=== PATIENT | female | born 1955 | race Caucasian/White ===

== ENCOUNTER 2021-04-20 12:16 | Emergency (ER) | payer MEDICAID ==
[~2021-04-20] VITALS: Ht 165.1 cm; Wt 64.0 kg
[2021-04-20] MEDS ORDERED: ACETAMINOPHEN 325MG TABLET PO NR (14:15)
[2021-04-20 15:11] LABS: BASOPHILS % 0.7 % (0.0-2.0); EOSINOPHILS % 2.9 % (0.0-5.0); HEMATOCRIT. 38.8 % (36.0-48.0); HEMOGLOBIN. 12.7 g/dL (12.0-16.0); LYMPHOCYTES % 32.7 % (20.0-50.0); MEAN CORPUSCULAR HEMOGLOBIN 30.4 pg (28.0-32.0); MEAN CORPUSCULAR VOLUME 92.8 fL (81.0-99.0); MEAN PLATELET VOLUME 8.4 fl (7.4-10.4); MONOCYTES % 6.8 % (2.0-8.0); NEUTROPHILS % 56.9 % (40.0-76.0); PLATELET 242 x1000/uL (130-400); RED BLOOD CELL COUNT 4.18 mill/uL (4.2-5.4); RED CELL DISTRIBUTION WIDTH 15.3 % (11.6-14.6)
[2021-04-20 15:19] LABS: CHLORIDE 112 mEq/L (98-107)
[2021-04-21 03:30] VITALS: BP 137/81
== END 2021-04-21 06:09 | disposition home or self-care (01) ==
LOC: ER 12:16
DX: M25.562 Pain in left knee (principal); M25.561 Pain in right knee; I95.9 Hypotension, unspecified; R41.82 Altered mental status, unspecified; R94.31 Abnormal electrocardiogram [ECG] [EKG]; R51.9 Headache, unspecified; R74.01 Elevation of levels of liver transaminase levels; Z59.02 Unsheltered homelessness
CPT/HCPCS: 36415; 70486; 71045; 73560; 80053; 83880; 84484; 85025; 93005; 99285

== ENCOUNTER 2021-08-28 13:34 | Inpatient (IN) | payer MEDICARE, OTHER ==
[~2021-08-28] VITALS: Ht 162.6 cm; Wt 70.2 kg
[2021-08-28 15:03] LABS: BASOPHILS % 0.6 % (0.0-2.0); EOSINOPHILS % 2.4 % (0.0-5.0); HEMOGLOBIN. 11.6 g/dL (12.0-16.0); LYMPHOCYTES % 25.5 % (20.0-50.0); MEAN CORPUSCULAR HEMOGLOBIN 30.1 pg (28.0-32.0); MEAN PLATELET VOLUME 8.8 fl (7.4-10.4); MONOCYTES % 6.7 % (2.0-8.0); NEUTROPHILS % 64.8 % (40.0-76.0); PLATELET 235 x1000/uL (130-400); RED BLOOD CELL COUNT 3.86 mill/uL (4.2-5.4); RED CELL DISTRIBUTION WIDTH 14.6 % (11.6-14.6)
[2021-08-28 15:09] LABS: CHLORIDE 111 mEq/L (98-107)
[2021-08-28 18:12] LABS: CLARITY URINE CLEAR (CLEAR); COLOR URINE YELLOW (YELLOW); KETONES URINE NEGATIVE (NEGATIVE); LEUKOCYTE ESTERASE URINE NEGATIVE (NEGATIVE); NITRITE URINE NEGATIVE (NEGATIVE); OCCULT BLOOD URINE NEGATIVE (NEGATIVE); PROTEIN URINE NEGATIVE (NEGATIVE); SPECIFIC GRAVITY URINE 1.008 (1.005-1.030)
[2021-08-28] MEDS ORDERED: SODIUM CHLORIDE 0.9% 1,000 ML IV ONE (19:00)
[2021-08-28] MEDS ORDERED: CLONIDINE 0.1MG TABLET PO PRN (21:15)
[2021-08-28] MEDS ORDERED: ZOLPIDEM TARTRATE 5MG TABLET PO PRN (21:15)
[2021-08-28] MEDS ORDERED: DIPHENHYDRAMINE 50MG/ML VIAL IV PRN (21:15)
[2021-08-28] MEDS ORDERED: GUAIFENESIN 200MG/10ML SUGAR FREE UDC PO PRN (21:15)
[2021-08-28] MEDS ORDERED: ONDANSETRON HCL 4MG/2ML INJ IV PRN (21:15)
[2021-08-28] MEDS ORDERED: MAGNESIUM/ALUMINUM HYDROXIDE/SIMETHICONE 30ML UDC PO PRN (21:15)
[2021-08-28] MEDS ORDERED: ACETAMINOPHEN 325MG TABLET PO PRN (21:15)
[2021-08-28] MEDS: SODIUM CHLORIDE 0.9% INJ 3ML FLUSH IVF SCH (22:02)
[2021-08-29 01:36] VITALS: BP 169/82
[2021-08-29 04:00] VITALS: BP 98/64
[2021-08-29] MEDS: SODIUM CHLORIDE 0.9% INJ 3ML FLUSH IVF SCH ×3 (06:48→22:22)
[2021-08-29 08:00] VITALS: BP 94/60
[2021-08-29 09:23] LABS: T4 FREE 0.77 ng/dL (0.76-1.46)
[2021-08-29] MEDS: ENOXAPARIN 40MG/0.4ML SYR SUBCUT SCH (09:49)
[2021-08-29 12:00] VITALS: BP 98/66
[2021-08-29] MEDS: ASPIRIN 81MG TABLET PO SCH (12:06)
[2021-08-29 16:00] VITALS: BP 99/59
[2021-08-29 17:44] LABS: CREATINE KINASE MB FRACTION 6.1 ng/mL (0.5-3.6)
[2021-08-29] MEDS: ACETAMINOPHEN 325MG TABLET PO PRN (19:55)
[2021-08-29 20:00] VITALS: BP 115/79
[2021-08-30] VITALS: BP 103/62
[2021-08-30 00:09] LABS: CREATINE KINASE MB FRACTION 9.1 ng/mL (0.5-3.6)
[2021-08-30 03:48] VITALS: BP 97/57
[2021-08-30] MEDS: SODIUM CHLORIDE 0.9% INJ 3ML FLUSH IVF SCH ×3 (05:17→21:34)
[2021-08-30 08:00] VITALS: BP 136/68
[2021-08-30] MEDS: ENOXAPARIN 40MG/0.4ML SYR SUBCUT SCH (08:25)
[2021-08-30] MEDS: ASPIRIN 81MG TABLET PO SCH (08:25)
[2021-08-30] MEDS: ACETAMINOPHEN 325MG TABLET PO PRN ×2 (08:26→21:34)
[2021-08-30 12:00] VITALS: BP 100/63
[2021-08-30] MEDS: CLOPIDOGREL 75MG TABLET PO SCH (12:31)
[2021-08-30 16:00] VITALS: BP 122/59
[2021-08-30 20:00] VITALS: BP 113/66
[2021-08-31] VITALS (7 sets, daily range): BP systolic 91–124; BP diastolic 54–70
[2021-08-31] MEDS: SODIUM CHLORIDE 0.9% INJ 3ML FLUSH IVF SCH ×3 (05:36→21:15)
[2021-08-31] MEDS: ENOXAPARIN 40MG/0.4ML SYR SUBCUT SCH (08:34)
[2021-08-31] MEDS ORDERED: NICARDIPINE 100MCG/ML 10ML VIAL (CATH LAB) IV ONE (08:36)
[2021-08-31] MEDS ORDERED: NITROGLYCERIN 50MCG/ML 10ML VIAL (CATH LAB) IV ONE (08:36)
[2021-08-31] MEDS ORDERED: LIDOCAINE HCL/PF 1% 10 MG/ML 5ML VIAL ONE ×2 (09:36→13:34)
[2021-08-31] MEDS: CLOPIDOGREL 75MG TABLET PO SCH (09:59)
[2021-08-31] MEDS: ASPIRIN 81MG TABLET PO SCH (09:59)
[2021-08-31 11:11] LABS: INR 1.1; PROTHROMBIN TIME 11.4 sec (9.6-11.0)
[2021-08-31] MEDS ORDERED: DIPHENHYDRAMINE 50MG/ML VIAL ONE (13:34)
[2021-08-31] MEDS ORDERED: VERAPAMIL HCL 2.5 MG/1 ML 2ML VIAL IV ONE (13:34)
[2021-08-31] MEDS ORDERED: IODIXANOL 320MG/ML 100 ML BOTTLE IV ONE (13:35)
[2021-08-31] MEDS ORDERED: HEPARIN 1000 UNITS/ML 10ML ONE (13:35)
[2021-08-31] MEDS ORDERED: MIDAZOLAM HCL 2 MG/2 ML VIAL ONE (13:35)
[2021-08-31] MEDS ORDERED: FENTANYL CITRATE/PF 50MCG/ML 2ML VIAL ONE (13:35)
[2021-08-31] MEDS ORDERED: ATROPINE SULFATE 1MG/10ML SYR ONE (13:49)
[2021-08-31] MEDS ORDERED: ATROPINE SULFATE 1MG/10ML SYR IV PRN (14:45)
[2021-08-31] MEDS: IBUPROFEN 600MG TABLET PO PRN (21:15)
[2021-09-01] VITALS: BP 124/71
[2021-09-01 04:00] VITALS: BP 97/48
[2021-09-01] MEDS: SODIUM CHLORIDE 0.9% INJ 3ML FLUSH IVF SCH (05:55)
[2021-09-01 06:15] LABS: BASOPHILS % 0.4 % (0.0-2.0); EOSINOPHILS % 3.9 % (0.0-5.0); HEMATOCRIT. 31.7 % (36.0-48.0); HEMOGLOBIN. 10.6 g/dL (12.0-16.0); LYMPHOCYTES % 26.5 % (20.0-50.0); MEAN CORPUSCULAR VOLUME 89.5 fL (81.0-99.0); MEAN PLATELET VOLUME 9.2 fl (7.4-10.4); MONOCYTES % 9.5 % (2.0-8.0); NEUTROPHILS % 59.7 % (40.0-76.0); PLATELET 180 x1000/uL (130-400); RED BLOOD CELL COUNT 3.54 mill/uL (4.2-5.4)
[2021-09-01 06:28] LABS: CHLORIDE 112 mEq/L (98-107)
[2021-09-01 08:00] VITALS: BP 105/66
[2021-09-01] MEDS: ENOXAPARIN 40MG/0.4ML SYR SUBCUT SCH (10:42)
[2021-09-01] MEDS: ASPIRIN 81MG TABLET PO SCH (10:43)
[2021-09-01] MEDS: IBUPROFEN 600MG TABLET PO PRN (11:42)
[2021-09-01 12:00] VITALS: BP 108/61
[2021-09-01 16:00] VITALS: BP 110/62
[2021-09-01 17:17] VITALS: BP 110/64
== END 2021-09-01 19:30 | disposition home or self-care (01) | DRG 190 ==
LOC: ER 13:34 → MICUSO 20:35 → EDBEDREQ 20:43 → EDBEDREQTM 20:43 → ENRESERV 23:54 → 6WST 08-29 01:37
PROVIDERS: ADMIT Internal Medicine; ATTEND Internal Medicine
PROC: 4A023N7 Measurement of Cardiac Sampling and Pressure, Left Heart, Percutaneous Approach (ICD-10-PCS; principal; 2021-08-31)
PROC: B211YZZ Fluoroscopy of Multiple Coronary Arteries using Other Contrast (ICD-10-PCS; 2021-08-31)
PROC: 02HV33Z Insertion of Infusion Device into Superior Vena Cava, Percutaneous Approach (ICD-10-PCS; 2021-08-31)
PROC: B5181ZA Fluoroscopy of Superior Vena Cava using Low Osmolar Contrast, Guidance (ICD-10-PCS; 2021-08-31)
PROC: B548ZZA Ultrasonography of Superior Vena Cava, Guidance (ICD-10-PCS; 2021-08-31)
DX: I21.4 Non-ST elevation (NSTEMI) myocardial infarction (principal); I25.10 Atherosclerotic heart disease of native coronary artery without angina pectoris; M19.90 Unspecified osteoarthritis, unspecified site; R53.1 Weakness; Z20.822 Contact with and (suspected) exposure to COVID-19
CPT/HCPCS: 36415; 36573; 71045; 80048; 80053; 80061; 81003; 82550; 82553; 83036; 83880; 84439; 84443; 84484; 85025; 85379; 87426; 93005; 93306; 93308; 93458; 93970; 97162; 99291; C1725; C1769; C1887; C1893; C9803; J0461; J1200; J1644; J1650; J2250; J3010; J3490; J7030; Q9967

== ENCOUNTER 2022-01-14 18:31 | Emergency (ER) | payer MEDICARE, OTHER ==
[~2022-01-14] VITALS: Ht 152.4 cm; Wt 72.6 kg
[~2022-01-14 18:31] MED LIST: HYDR-4001 MT
[2022-01-14] MEDS ORDERED: HYDROCODONE/ACETAMINOPHEN 10/325MG TABLET PO ONE (19:30)
[2022-01-14] MEDS ORDERED: KETOROLAC 30MG/ML VIAL IM ONE (19:30)
[2022-01-14] MEDS ORDERED: TOPUD MT (21:41)
[2022-01-14] MEDS ORDERED: CYCL5TAB MT (21:41)
[2022-01-14 22:40] VITALS: BP 140/85
== END 2022-01-14 22:44 | disposition home or self-care (01) ==
LOC: ER 18:31
DX: M54.50 Low back pain, unspecified (principal)
CPT/HCPCS: 72100; 96372; 99283; J1885

== ENCOUNTER 2022-03-01 12:28 | Emergency (ER) | payer MEDICARE, OTHER ==
[~2022-03-01] VITALS: Ht 165.1 cm; Wt 75.0 kg
[~2022-03-01 12:28] MED LIST changes: +CYCL5TAB MT; +TOPUD MT
[2022-03-01 12:51] VITALS: BP 118/75
== END 2022-03-01 21:46 | disposition left against medical advice (07) ==
LOC: ER 12:28
DX: Z53.21 Procedure and treatment not carried out due to patient leaving prior to being seen by health care provider (principal)

== ENCOUNTER 2022-03-27 10:54 | Emergency (ER) | payer MEDICARE, OTHER ==
[~2022-03-27] VITALS: Ht 162.6 cm; Wt 60.0 kg
[~2022-03-27 10:54] MED LIST changes: +CYAN-50 MT
[2022-03-27 11:03] VITALS: BP 108/69
== END 2022-03-27 13:04 | disposition home or self-care (01) ==
LOC: ER 11:20
DX: R20.0 Anesthesia of skin (principal); I10 Essential (primary) hypertension; Z79.899 Other long term (current) drug therapy
CPT/HCPCS: 99283